=== PATIENT | male | born 2000 | race Caucasian/White ===

== ENCOUNTER 2020-12-12 15:17 | Outpatient (CLI) | payer OTHER, SELFPAY ==
--- NOTE | ~2020-12-12 | XR_ITS ---
XR foot RT min 3V DATE: 12/12/2020 15:46 INDICATION: Pain at the ball of the right foot TECHNIQUE: 4 views COMPARISON: 09/05/2009 right foot FINDINGS: There is a recent minimally displaced fracture of the neck of the third metatarsal bone. No fracture, dislocation, periosteal reaction or bone destruction. IMPRESSION: Third metatarsal neck fracture Reviewed, dictated and finalized at location A.
--- NOTE | ~2020-12-12 | XR_ITS ---
XR hand LT min 3V DATE: 12/12/2020 15:45 INDICATION: Left hand pain TECHNIQUE: 3 views COMPARISON: None FINDINGS: No fracture or dislocation, periosteal reaction or bone destruction. Joint spaces are intac t. No erosive change. IMPRESSION: Negative Reviewed, dictated and finalized at location A. IMPRESSION: Negative
== END 2020-12-12 15:18 | disposition home or self-care (01) ==
PROVIDERS: PCP Family Medicine; Visit Provider Family Medicine
DX: R22.32 Localized swelling, mass and lump, left upper limb (principal); M79.671 Pain in right foot
CPT/HCPCS: 73130; 73630